=== PATIENT | male | born 1955 | race Two or more races ===

== ENCOUNTER 2024-01-18 22:36 | Emergency (ER) | payer OTHER ==
[~2024-01-18] VITALS: Ht 188 cm; Wt 94.0 kg
[2024-01-18 23:00] VITALS: BP 169/85; PULSE 63; RESP 17; O2SAT 97
--- NOTE | 2024-01-18 23:06 | ED.PDOC ---
History of Present Illness HPI Comments 68-year-old male who presents to the emergency department elevated blood pressure reading. He checks his blood pressure at [facility] pros arrival was 184/90. He states he has been feeling well recently, feeling like his normal self. Went to his primary care provider routine appointment today and his blood pressure was in the 140 systolic. He denies any significant past medical history. Denies history of hypertension. No hospitalizations, no surgeries, he does not take any other medications other than vitamins. At this time he is denying chest pain, shortness of breath, headache, abdominal pain, blurry vision, lower extremity edema. Time Seen by MD: 22:39 Allergies: Coded Allergies: NO KNOWN ALLERGIES (Unverified , 01/18/24) Review of Systems: REVIEW OF SYSTEMS: No fever, no chills, or fatigue HEENT: No sore throat, no earache, no congestion, no neck pain. Cardiac: No chest pain. No palpitations. Lungs: No shortness of breath, no cough. GI: No nausea, no vomiting, no diarrhea, no constipation, no abdominal pain : No dysuria, frequency, or urgency. No hematuria. Musculoskeletal: No joint pain , no joint swelling, no extremity edema. Skin: No rash, no itching. Neuro: No headache, no dizziness, no weakness Vital Signs Vital Signs Date Time Temp Pulse Resp B/P (MAP) Pulse Ox O2 Delivery O2 Flow Rate FiO2 01/18/24 23:00 98.2 63 17 169/85 (113) 97 Physical Exam Blood pressure right upper extremity 169/85. Blood pressure left upper extremity 171/81. General: Awake, alert and oriented. No acute distress. Skin: Skin in warm, dry and intact. Appropriate color for ethnicity. Nailbeds pink with no cyanosis. HEENT: The head is normocephalic and atraumatic. Conjunctivae are clear without exudates or hemorrhage. Sclera is non-icteric. EOM are intact. No signs of nystagmus. Eyelids are normal in appearance without swelling or lesions. Oral mucosa is pink and moist Neck: The neck is supple with normal range of motion. No JVD. Cardiac: Heart rate and rhythm are normal. No murmurs, gallops, or rubs are auscultated. Respiratory: No signs of respiratory distress. Lung sounds are clear in all lobes bilaterally without rales, ronchi, or wheezes. Abdominal: Abdomen is soft, non-tender without distention. Bowel sounds are present and normoactive in all four quadrants. Extremities: Upper and lower extremities are atraumatic in appearance without deformity or edema. Neurological: The patient is awake, alert and oriented to person, place, and time with normal speech. Speech is clear. There is no facial asymmetry. Psychiatric: Appropriate mood and affect. Good judgement and insight. No visual or auditory hallucinations. Was a procedure done? Was a procedure done?: No Differential Dx Considerations may include: Hypertensive emergency, hypertensive urgency, CVA, acute coronary syndrome, AAA X-Ray, Labs, Meds, VS Vital Signs Date Time Temp Pulse Resp B/P (MAP) Pulse Ox O2 Delivery O2 Flow Rate FiO2 01/18/24 23:00 98.2 63 17 169/85 (113) 97 Time of 1ST Reevaluation: 23:11 Reevaluation 1ST: Improved Patient Education/Counseling: Diagnosis, Treatment, Prognosis, Need For Follow Up Family Education/Counseling: No Family Present Departure 1 Departure Time of Disposition: 23:00 Impression: Primary Impression: Elevated blood pressure reading Disposition: HOME / SELF CARE / HOMELESS Condition: Stable Additional Instructions: ED DISCHARGE INSTRUCTIONS Instructions: Please read all instructions provided in this packet carefully. Although you have been discharged from the Emergency Department, this does not mean that you have a "clean bill of health". No definitive diagnosis for your symptoms has been made today. It is possible that you are in the process of developing a serious illness. This is why you must return to the ED without fail if any new or worsening symptoms (especially if your symptoms include chest p ain, trouble breathing, abdominal pain, fever, headache, confusion, trouble seeing, or trouble walking) It is also very important that you see a primary care doctor within the next 3-5 days to follow up. If you are unable to get an appointment, return to the ED for re-evaluation. You had elevated blood pressure reading today. Untreated high blood pressure can have serious consequences. However, you need a follow-up appointment to recheck your blood pressure to determine whether or not you need treatment. Make an appointment with your primary care provider for this within the next week. High Blood Pressure When to Call a Doctor Call 911 anytime you think you may need emergency care. This may mean having symptoms that suggest that your blood pressure is causing a serious heart or blood vessel problem. Your blood pressure may be over 180/120. For example, call 911 if: You have symptoms of a heart attack. These may include: Chest pain or pressure, or a strange feeling in the chest. Sweating. Shortness of breath. Nausea or vomiting. Pain, pressure, or a strange feeling in the back, neck, jaw, or upper belly or in one or both shoulders or arms. Lightheadedness or sudden weakness. A fast or irregular heartbeat. You have symptoms of a stroke. These may include: Sudden numbness, tingling, weakness, or loss of movement in your face, arm, or leg, especially on only one side of your body. Sudden vision changes. Sudden trouble speaking. Sudden confusion or trouble understanding simple statements. Sudden problems with walking or balance. A sudden, severe headache that is different from past headaches. You have severe back or belly pain. Do not wait until your blood pressure comes down on its own. Get help right away. Call your doctor now or seek immediate care if: Your blood pressure is much higher than normal (such as 180/120 or higher), but you don't have symptoms. You think high blood pressure is causing symptoms, such as: Severe headache. Blurry vision. Watch closely for changes in your health, and be sure to contact your doctor if: Your blood pressure measures higher than your doctor recommends at least 2 times. That means the top number is higher or the bottom number is higher, or both. You think you may be having side effects from your blood pressure medicine. Your blood pressure can be checked: At a clinic where you work or go to school. At drugstores, health fairs, fitness centers, community centers, fire stations, and ambulance stations. What is high blood pressure? Blood pressure is a measure of how hard the blood pushes against the wilson of your arteries. It's normal for blood pressure to go up and down throughout the day. But if it stays up, you have high blood pressure (hypertension). Two numbers tell you your blood pressure. The first (top) number is the systolic pressure. It shows how hard the blood pushes when your heart is pumping. The second (bottom) number is the diastolic pressure. It shows how hard the blood pushes between heartbeats, when your heart is relaxed and filling with blood. High blood pressure means that the top number stays high, or the bottom number stays high, or both. For diagnosis, the top number may be 130 to 140 or higher. The bottom number may be 80 to 90 or higher.footnote1, footnote2 High blood pressure increases the risk of stroke, heart attack, and other problems. What causes it? Experts don't fully understand the exact cause of high blood pressure. But they know that some things are linked to it. These include aging, drinking too much alcohol, eating a lot of sodium (salt), being overweight, and not exercising. What are the symptoms? High blood pressure doesn't usually cause symptoms. Most people don't know they have it until they go to the doctor for some other reason. Very high blood pressure (such as 180/120 or higher) can cause severe headaches and vision problems. How is it diagnosed? During a routine visit, your doctor will measure your blood pressure. Your doctor may ask you to test it again when you are home.[id number], footnote4 This is because your blood pressure can change throughout the day. To diagnose high blood pressure, your doctor needs to know if your blood pressure is high th roughout the day. How is high blood pressure treated? The two types of treatment for high blood pressure are lifestyle changes and medicines. Your doctor may ask you to lose extra weight, eat less sodium, and be more active. If these lifestyle changes don't help enough, you may also need to take daily medicines. What can you do to prevent it? A heart-healthy lifestyle can help you prevent high blood pressure. These changes are even more important if you have risk factors for high blood pressure that you can't change. These risk factors include race, age, and having others in your family who have high blood pressure. Here are some things you can do. Stay at a healthy weight. Eat heart-healthy foods, and limit sodium. Get regular exercise. Limit alcohol to 2 drinks a day for men and 1 drink a day for women. What Happens When blood pressure is high, it starts to damage blood vessels, called arteries, and your heart. Damaged arteries can lead to problems throughout your body. The higher your blood pressure, the greater your risk. This damage doesn't happen all at once. It happens slowly over time. But you can't tell that it's happening, because you don't feel anything. High blood pressure can lead to: Heart failure. High blood pressure makes your heart work harder. And that can lead to heart failure, which means your heart doesn't pump as much blood as your body needs. Heart attack and stroke. High blood pressure can cause atherosclerosis or "hardening of the arteries." This problem happens when the inner lining of an artery is damaged. Fat and calcium can build up in the artery wall. This buildup is called plaque. Over time, plaque can cause problems throughout the body. These problems include coronary artery disease, peripheral artery disease, heart attack, and stroke. Vision loss and kidney disease. Arteries also carry blood and oxygen to organs like your eyes and kidneys. If hi gh blood pressure damages those arteries, it can lead to vision loss and kidney disease. Problems in your brain. High blood pressure can also affect the arteries in your brain, raising the risk of dementia and a stroke caused by bleeding in the brain. High blood pressure usually can't be cured. But it can be controlled. Lowering blood pressure lowers the risk of damaging blood vessels. To lower it, you may make lifestyle changes, take medicines each day, or both. Comments 58-year-old male with elevated blood pressure reading today. Patient reports he had a near normal blood pressure while and his routine visit. He is asymptomatic at this time. Blood pressure also mildly elevated while here in the emergency department. Patient exhibits no sign, symptom or exam findings of acute coronary syndrome, congestive heart failure, CVA, hypertensive urgency, hypertensive emergency, AAA. Patient is felt stable for discharge home with further investigation with his primary care provider. Consider ordering labs, EKG however patient is essentially asymptomatic in his blood pressure improved while in the emergency department. . Evaluation was performed in attempt to identify or rule out: (See differential diagnosis section) The following tests were ordered, and results were reviewed by me: (See diagnostic results section) The following test were independently interpreted by me: N/A I reviewed and agreed with the following test results read by other providers: N/A I reviewed the following notes from the pt's past medical encounters: (None available at this time) Additional information was gathered from interviewing the following independent historians: N/A Discussion of management or test interpretation with external physician/other qualified health landcare officer: N/A Decision regarding hospitalization or escalation of hospital level of care: Risks and benefits of admission for further treatment of patient's condition was considered however due to patient's stable condition patient will be discharged to follow up closely or return to care for worsening of condition or inability to follow up. Critical Care Note Critical Care Time?: No Stability Stability form required: No Heart Score Heart Score: Heart Score Response (Comments) Value History N/A 0 EKG N/A 0 Age N/A 0 Risk Factors N/A 0 Troponin N/A 0 Total 0 EDMUND MCCANN MD Jan 18, 2024 23:06
== END 2024-01-18 23:30 | disposition home or self-care (01) ==
LOC: ER 22:36
DX: I10 Essential (primary) hypertension (principal)